=== PATIENT | male | born 1950 | race Caucasian/White ===

== ENCOUNTER 2019-11-22 14:54 | Outpatient (CLI) | payer MEDICARE, SELFPAY ==
--- NOTE | ~2019-11-22 | CT_ITS ---
EXAMINATION: CT sinus wo con DATE: 11/22/2019 15:11 INDICATION: TECHNIQUE: Computed tomography (CT) of the paranasal sinuses was performed without contrast. Iterativ e reconstruction technique was employed. Exam dose: 260.54 mGy-cm total exam DLP. COMPARISON: None FINDINGS: There is leftward deviation of the nasal septum. The left osteomeatal unit is opacified. The right osteomeatal unit is clear. There is left maxillary sinus complete opacification, with medial bowing of the medial wall of the si nus. There is a transverse septum of the right maxillary sinus. There is minimal mucoperiosteal thickenin g and fluid in the right maxillary sinus. There is patchy soft tissue thickening of ethmoid air cells. The sphenoid sinuses are patent. The mastoid air cells are normally developed and aerated. IMPRESSION: Left maxillary mucocele Minimal right maxillary soft tissue thickening and fluid Reviewed, dictated and finalized at [facility]. Reviewed, dictated and finalized at [facility].
== END 2019-11-22 14:55 ==
PROVIDERS: Visit Provider Otolaryngology
DX: J32.9 Chronic sinusitis, unspecified (principal)
CPT/HCPCS: 70486

== ENCOUNTER 2020-01-25 14:53 | Outpatient (CLI) | payer MEDICARE, SELFPAY ==
[2020-01-25 15:06] LABS: Hematocrit 41.9 % (37.0-46.0); Mean Corpuscular HGB Conc 33.4 g/dL (32.0-36.0); Mean Corpuscular Hemoglobin 29.5 pg (27.0-31.0); Mean Corpuscular Volume 88.2 fL (78.0-102.0); Platelet Count Result 199 K/mm3 (150-420); Red Blood Count 4.75 M/mm3 (4.70-6.10); Red Cell Distribution Width 13.8 % (11.6-14.4); White Blood Count 7.5 K/mm3 (4.8-10.8)
[2020-01-25 15:49] LABS: Alanine Aminotransferase 20 U/L (16-63); Albumin Level 3.4 g/dL (3.4-5.0); Alkaline Phosphatase 50 U/L (46-116); Anion Gap 6 mmol/L (8-16); Aspartate Amino Transferase 12 U/L (15-37); Bilirubin,Total 0.8 mg/dL (0.00-1.00); Blood Urea Nitrogen 16 mg/dL (7-18); Calcium 8.5 mg/dL (8.5-10.1); Carbon Dioxide 32 mmol/L (21-32); Chloride 103 mmol/L (98-108); Estimated Glomerular Filt Rate > 60; Glucose 94 mg/dL (70-99); Osmolality Calculated 293 mOsm/kg (285-295); Potassium 4.2 mmol/L (3.5-5.1); Prostate Specific Antigen 5.5 ng/mL (< OR = 4.0); Sodium 141 mmol/L (136-145)
== END 2020-01-25 14:54 | disposition home or self-care (01) ==
LOC: CHSLAB 14:55
PROVIDERS: PCP Family Medicine; Visit Provider Family Medicine
DX: N40.0 Benign prostatic hyperplasia without lower urinary tract symptoms (principal); Z12.5 Encounter for screening for malignant neoplasm of prostate; I10 Essential (primary) hypertension
CPT/HCPCS: 36415; 80053; 84153; 85027; G0103

== ENCOUNTER 2021-01-07 16:15 | Outpatient (CLI) | payer MEDICARE, SELFPAY ==
[2021-01-07 18:09] LABS: SARS-CoV-2 RNA PCR Positive (Negative)
== END 2021-01-07 16:16 | disposition home or self-care (01) ==
PROVIDERS: PCP Family Medicine; Visit Provider Family Medicine
DX: Z20.822 Contact with and (suspected) exposure to COVID-19 (principal)
CPT/HCPCS: C9803; U0003; U0005

== ENCOUNTER 2021-01-09 14:01 | Outpatient (CLI) | payer OTHER, MEDICARE, SELFPAY ==
[2021-01-09] MEDS: ACETAMINOPHEN 325 MG TABLET 650 MG PO (14:44)
[2021-01-09] MEDS: diphenhydrAMINE HCl CAP 25 MG CAPSULE PO (14:45)
[2021-01-09] MEDS: FAMOTIDINE 20 MG TABLET PO (14:45)
[2021-01-09 14:55] VITALS: BP 136/80; PULSE 65; RESP 18; TEMP 36.8; O2SAT 94
--- NOTE | 2021-01-09 14:55 | PC.NURSE ---
Patient here for infusion. Tolerated IV start well. Vital signs stable. Patient took premeds with no issues. Resting in bed with hob elevated.
[2021-01-09 15:50] VITALS: BP 130/76; PULSE 62; RESP 18; TEMP 36.5; O2SAT 97
--- NOTE | 2021-01-09 16:45 | PC.NURSE ---
Patient tolerated infusion well. No sign or symptoms of adverse reactions noted. Patient accompanied to front door via wheelchair. Patient left via private vehicle.
== END 2021-01-09 14:02 | disposition home or self-care (01) ==
LOC: CHSTREATRM 14:04
PROVIDERS: PCP Family Medicine; Visit Provider Family Medicine
DX: Z23 Encounter for immunization (principal); U07.1 COVID-19
CPT/HCPCS: 96365; A9270; M0245; Q0245

== ENCOUNTER 2021-01-29 15:18 | Outpatient (CLI) | payer MEDICARE, SELFPAY ==
--- NOTE | 2021-01-29 15:26 | ECG_ITS ---
Measurements Intervals [place] Rate: 64 P: 39 NV: 204 QRS: -35 QRSD: 133 T: 1 QT: 387 QTc: 402 Interpretive Statements SINUS RHYTHM LEFT AXIS DEVIATION RIGHT BUNDLE BRANCH BLOCK ABNORMAL ECG Electronically Signed On 01-29-2021 15:51:17 CDT by Romulo Acuna D.O.
== END 2021-01-29 15:19 | disposition home or self-care (01) ==
LOC: CHSCARD 15:20
PROVIDERS: PCP Family Medicine; Visit Provider Family Medicine
DX: R06.00 Dyspnea, unspecified (principal)
CPT/HCPCS: 93005

== ENCOUNTER 2021-01-30 12:39 | Outpatient (CLI) | payer MEDICARE, SELFPAY ==
--- NOTE | 2021-01-30 14:25 | ECHO_ITS ---
Patient Info Name: Delon Ayoub Age: 70 years : 1950 Gender: Male Ht: 69 in Wt: 207 lbs BSA: 2.16 m2 HR: 61 bpm BP: 123 / 68 mmHg Exam Date: 01/30/2021 1:22 PM Exam Location: [facility] Patient Status: Outpatient Admit Date: 01/30/2021 Staff Ordering Physician: Rodríguez Mosqueda MD Technical Research Scientist: Iam Mccartney RDCS, RT Attending Provider: Rodríguez Mosqueda MD Referring Physician: Panda MILLER; Exam Type: CA echo doppler color flow Study Info Indications I50.9 - Heart failure, unspecified Complete two-dimensional, color flow and Doppler transthoracic echocardiogram is performed. Strain analysis performed. Summary 1. Complete two-dimensional, color flow and Doppler transthoracic echocardiogram is performed. 2. Left ventricular chamber dimension is normal. 3. Left ventricular systolic function is hyperdynamic, estimated at >70%. 4. There is moderately increased left ventricular wall thickness. 5. The left ventricular diastolic function is grade I diastolic dysfunction. 6. E/e' 5 is not elevated. 7. Global longitudinal strain is normal at -19.7%. 8. Left atrial chamber dimension is moderately enlarged. 9. Moderate 10. lipomatous hypertrophy of the atrial septum. 11. There is moderate aortic valve sclerosis. 12. The mitral valve has mildly calcified annulus. 13. There is trace mitral valve regurgitation. 14. No pulmonary hypertension, estimated pulmonary arterial systolic pressure is 27 mmHg. 15. There is trace tricuspid valve regurgitation. Left Ventricle E/e' 5 is not elevated. Global longitudinal strain is normal at -19.7%. Left ventricular chamber dimension is normal. Left ventricular systolic function is hyperdynamic, estimated at >70%. There is moderately increased left ventricular wall thickness. The left ventricular diastolic function is grade I diastolic dysfunction. Right Ventricle Right ventricular systolic function is normal and with normal TAPSE 3.3 cm. Right ventricular chamber dimension is normal. Left Atria Left atrial chamber dimension is moderately enlarged. Right Atria Right atrial chamber dimension is normal. 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 Aortic Valve The aortic valve is trileaflet. There is moderate aortic valve sclerosis. There is no aortic valve stenosis. There is no aortic valve regurgitation. Pulmonic Valve There is no pulmonic regurgitation. Mitral Valve The mitral valve has mildly calcified annulus. There is no mitral valve stenosis. There is trace mitral valve regurgitation. Tricuspid Valve There is trace tricuspid valve regurgitation. No pulmonary hypertension, estimated pulmonary arterial systolic pressure is 27 mmHg. Pericardium/Pleural There is no pericardial effusion. Inferior Vena Cava Normal inferior vena cava with >50% collapse upon inspiration consistent with normal right atrial pressure, 5 mmHg. Aorta The aortic root size at the sinus of Valsalva is normal. Left Ventricular Outflow Tract Name Value Normal LVOT 2D LVOT Diameter 2.1 cm LVOT Doppler LVOT P
== END 2021-01-30 12:40 | disposition home or self-care (01) ==
LOC: CHSIMG 12:41
PROVIDERS: PCP Family Medicine; Visit Provider Family Medicine
DX: R94.31 Abnormal electrocardiogram [ECG] [EKG] (principal); R06.02 Shortness of breath; I35.8 Other nonrheumatic aortic valve disorders
CPT/HCPCS: 93306

== ENCOUNTER 2021-02-18 12:55 | Outpatient (CLI) | payer MEDICARE, SELFPAY | END 2021-02-18 12:56 | disposition home or self-care (01) | LOC: CHSCARD 12:56 | PROVIDERS: PCP Family Medicine; Visit Provider Family Medicine | DX: R06.00 Dyspnea, unspecified (principal) | CPT/HCPCS: 94060; 94726; 94729 ==

== ENCOUNTER 2022-03-17 11:38 | Outpatient (CLI) | payer MEDICARE, SELFPAY ==
--- NOTE | ~2022-03-17 | XR_ITS ---
XR chest 2V DATE: 03/17/2022 11:56 INDICATION: Cough. Generalized chest pain. 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 There is osteopenia. Heart size is within normal range. Is aortic calcification, ectasia and tortuosity. No pulmonary infi ltrate or consolidation, pleural effusion or pulmonary vascular congestion or pneumothorax. IMPRESSION: No active cardiac pulmonary disease or significant change since 11/20/2014 Reviewed, dictated and finalized at [facility]. [facility] [employer] IMPRESSION: No active cardiac pulmonary disease or significant change since 11/10
== END 2022-03-17 11:39 | disposition home or self-care (01) ==
LOC: CHSIMG 11:39
PROVIDERS: PCP Family Medicine; Visit Provider Family Medicine
DX: R05.9 Cough, unspecified (principal)
CPT/HCPCS: 71046